=== PATIENT | male | born 1995 | race Caucasian/White ===

== ENCOUNTER 2020-09-08 14:11 | Outpatient (CLI) | payer OTHER, SELFPAY ==
--- NOTE | ~2020-09-08 | US_ITS ---
EXAMINATION: US scrotum doppler DATE: 09/08/2020 14:43 INDICATION: Right scrotal pain. TECHNIQUE: Grayscale and Doppler ultrasound images of the testes were obtained. COMPARISON: Ultrasound 03/20/2019 FINDINGS: The right testis measures 4.9 x 2.2 x 3.1 cm. The left testis measures 4.7 x 2.7 x 3.0 cm. There is normal vascular flow to both testes. The right epididymis is normal with normal vascular raymundo w. The left epididymis is normal with normal vascular flow. There is no varicocele or hydrocele. IMPRESSION: 1. Normal testes. Reviewed, dictated and finalized at location A. RING ASSISTANT IMPRESSION: 1. Normal testes.
== END 2020-09-08 14:12 | disposition home or self-care (01) ==
PROVIDERS: PCP Emergency Medicine; Visit Provider Emergency Medicine
DX: N50.811 Right testicular pain (principal)
CPT/HCPCS: 76870; 93976

== ENCOUNTER 2022-03-15 20:52 | Emergency (ER) | payer OTHER, SELFPAY ==
[2022-03-15 21:00] VITALS: BP 132/82; PULSE 80; RESP 18; TEMP 36.3; O2SAT 100
--- NOTE | 2022-03-15 21:12 | ED.SKABFB ---
HPI - Skin/Abscess/Foreign Bdy General Chief complaint: Skin/Abscess/Foreign Body Stated complaint: insect bite Time Seen by Provider: 03/15/22 21:12 History of Present Illness HPI narrative: Patient is a 27-year-old male presenting to the emergency department for evaluation of left upper extremity infection. Patient reports that he was bit by a mosquito bite 3 days ago, had noticed redness at the site of the bite troy. Patient states that he seemed to have some increasing areas of redness in the left forearm and soreness in his armpit area. Patient denies any draining from the lesion. Denies any fever, chills, nausea or vomiting. Patient was sent to an urgent care today and was prescribed Keflex and oral prednisone. He has been applying anti-itch cream and taking oral Benadryl. Patient denies history of diabetes, immunosuppression. No history of skin infection. Denies history of IV drug abuse. Patient states that he came to the emergency department because he heard that if the infection traveled to his heart it could kill him. Related Data Allergies Allergy/AdvReac Type Severity Reaction Status Date / Time No Known Allergies Allergy Unverified 05/21/19 07:54 Review of Systems Review of Systems: CONSTITUTIONAL: Denies fever CARDIOVASCULAR: Denies chest pain RESPIRATORY: Denies cough or dyspnea. GASTROINTESTINAL: Denies abdominal pain SKIN: Reports redness and bite troy to left forearm MUSCULOSKELETAL: Denies back pain NEUROLOGIC: Denies headache PMFSH Past Medical History Medical History (Updated 03/15/22 @ 21:18 by Flower Gongora MD) Cervical spine fracture Surgical History Surgical History (Updated 03/15/22 @ 21:15 by Flower Gongora MD) History of tonsillectomy Social History Social History (Updated 03/15/22 @ 21:15 by Flower Gongora MD) Smoking status: Former smoker Alcohol intake: current Substance use: never Gender identity (if verbalized by the patient): Male Exam Narrative: GENERAL: Awake, alert, conversant HEAD: Normocephalic, atraumatic. EYES: PERRLA and EOMI. ENT: Nares clear, no rhinorrhea or epistaxis. Mucous membranes moist. NECK: Supple. CHEST: No respiratory distress, breathing even and non labored HEART: Regular rate, sinus rhythm ABDOMEN:Non distended, non tender EXTREMITIES: Normal range of motion. No edema. Patient with envenomation troy in the left antecubital fossa there are no vesicles, no fluctuance, no significant induration. No targetoid lesion. There is a mild amount of erythema distal to the wound there is no evidence of tracking. Radial pulse 2+. Intact sensation median, ulnar, radial nerve distribution. No significant edema. SKIN: Warm, dry, no rash. NEURO:No focal deficits. Alert and oriented x3 Course Vital Signs Vital signs: Vital Signs Temperature 36.3 C L 03/15/22 21:00 Pulse Rate 80 03/15/22 21:00 Respiratory Rate 18 03/15/22 21:00 Blood Pressure 132/82 03/15/22 21:00 Pulse Oximetry 100 03/15/22 21:00 Oxygen Delivery Room Air 03/15/22 21:00 Temperature 36.3 C L 03/15/22 21:00 Pulse Rate 80 03/15/22 21:00 Respiratory Rate 18 03/15/22 21:00 Blood Pressure 132/82 03/15/22 21:00 Pulse Oximetry 100 03/15/22 21:00 Oxygen Delivery Room Air 03/15/22 21:00 MDM - Skin/Abscess/Foreign Bdy MDM Narrative Medical decision making narrative: Patient presenting for evaluation of left upper extremity lesion with known mosquito bite envenomation and concern for potential worsening infection. Patient was prescribed oral Keflex as well as a oral course of prednisone at the urgent, states that he had 1 dose of Keflex and has noticed an improvement in the area. Patient has been using topical anti-itch cream and Benadryl. Advised that he may continue this on the Keflex but I did not recommend continuing the prednisone. This seems most consistent with envenomation versus early cellulitis. There is no evidence of
== END 2022-03-15 21:42 | disposition home or self-care (01) ==
LOC: ANHED 21:29
PROVIDERS: Emergency Provider Emergency Medicine; PCP Emergency Medicine
DX: L03.114 Cellulitis of left upper limb (principal)
CPT/HCPCS: 99281

== ENCOUNTER 2022-07-10 20:45 | Emergency (ER) | payer OTHER, SELFPAY ==
--- NOTE | ~2022-07-10 | CT_ITS ---
EXAMINATION: CT abdomen pelvis w con DATE: 07/11/2022 00:17 INDICATION: Right lower quadrant pain. TECHNIQUE: Computed tomography (CT) of the abdomen and pelvis was performed with 100 cc Omnipaque 350 intravenous contrast. The dose-length product was 262.92 mGy-cm. Automated exposure control and iter ative reconstruction technique were employed. COMPARISON: CT dated 03/20/2019. FINDINGS: Lung bases are unremarkable. Heart size normal. No significant pleural or pericardial effus ion. The liver, spleen, pancreas, adrenal glands and kidneys are unremarkable. Gallbladder is present . No significant vascular abnormality. No lymphadenopathy. Colonic diverticulosis without evidence fo r diverticulitis. A normal appendix. No hydronephrosis. No evidence for hernia. No free air or free f luid. No acute bone or joint abnormality. IMPRESSION: 1. No acute abdominal abnormality. Reviewed, dictated and finalized at location B.
[2022-07-10 20:53] VITALS: BP 148/75; PULSE 90; RESP 16; TEMP 36.5; O2SAT 97
[2022-07-10 22:34] LABS: Basophils Percent Auto 0.3 % (0.2-1.2); Eosinophils Percent Auto 0.6 % (0-4.4); Hematocrit 45.6 % (42.0-52.0); Hemoglobin 16.3 g/dL (14.0-18.0); Immature Granulocyte Absolute 0.01 K/mm3 (0.00-0.031); Immature Granulocyte Percent A 0.1 % (0-0.5); Lymphocytes Percent Auto 36.9 % (18.3-44.2); Mean Corpuscular HGB Conc 35.7 g/dl (32-36); Mean Corpuscular Hemoglobin 30.5 pg (26-34); Mean Corpuscular Volume 85.4 fl (80-100); Mean Platelet Volume 10.5 fl (7.4-10.4); Monocytes Absolute Auto 0.4 K/mm3 (0.1-0.6); Monocytes Percent Auto 5.3 % (2.6-8.5); Neutrophils Absolute Auto 3.8 K/mm3 (1.3-6.7); Neutrophils Percent Auto 56.8 % (45.5-73.1); Platelet Count Result 156 k/mm3 (150-375); Red Blood Count 5.34 M/mm3 (4.6-6.20); Red Cell Distribution Width 11.6 % (11.5-14.5); White Blood Count 6.8 K/mm3 (4.5-10.0)
[2022-07-10 22:39] LABS: Add Urine Microscopic? YES; Appearance Urine Clear (Clear); Bilirubin Urine Negative (Negative); Blood Urine Negative (Negative); Color Urine Yellow (Yellow); Glucose Urine UA Negative (Negative); Ketones Urine 1+ mg/dL (Negative); Leukocyte Esterase Ur Negative LEU/UL (Negative); Mucus Urine Rare /lpf; Nitrate Urine Negative (Negative); Protein Urine Negative (Negative); Specific Grav Ur 1.029 (1.001-1.035); Urobilinogen Urine Negative mg/dL (<2.0); WBC Urine 0-3 /hpf
[2022-07-10 22:46] LABS: Alanine Aminotransferase 19 U/L (6-50); Albumin Level 5.1 g/dL (3.5-5.1); Alkaline Phosphatase 54 U/L (38-126); Anion Gap 17 mmol/L (8-16); Aspartate Amino Transferase 22 U/L (17-59); Bilirubin,Total 0.6 mg/dL (0.2-1.3); Blood Urea Nitrogen 16 mg/dL (9-20); Carbon Dioxide 27 mmol/L (22-30); Chloride 99 mmol/L (98-107); Estimated CRCL calculation 109 ml/min; Estimated Glomerular Filt Rate > 60; Glucose 87 mg/dL (65-110); Lipase 20 U/L (23-300); Potassium 3.6 mmol/L (3.4-5.0); Sodium 143 mmol/L (137-145)
--- NOTE | 2022-07-10 23:52 | ED.GENADULT ---
HPI - General Adult General Chief complaint: Abdominal Pain Stated complaint: abd and groin pain Time Seen by Provider: 07/10/22 22:43 History of Present Illness HPI narrative: Patient is a 27-year-old gentleman who presents the emergency department with chief complaint of right lower quadrant and right inguinal pain. The patient reports he is concerned that he may have a hernia reports that it was becoming more painful reports that when he is laying down it becomes worse and improved actually when he stands up. The patient reports that he noticed a small bump in the area but it does reduce. The patient states that he has worsening pain in the right lower quadrant reports it is worse with movement and improved with rest. Patient denies fever denies vomiting denies diarrhea. Patient denies penile discharge denies testicle pain. Related Data Allergies Allergy/AdvReac Type Severity Reaction Status Date / Time No Known Allergies Allergy Verified 07/10/22 20:52 Review of Systems Review of Systems: A 10 system review of systems was completed on the patient and is negative except for what is stated in the HPI. Nursing and ancillary documentation was reviewed. [facility] Past Medical History Medical History Cervical spine fracture Surgical History Surgical History History of tonsillectomy Social History Social History Smoking status: Former smoker Alcohol intake: current Substance use: never Gender identity (if verbalized by the patient): Male Exam Narrative: GENERAL: Well-appearing, well-nourished, and in no acute distress. HEAD: Normocephalic, atraumatic. EYES: PERRLA and EOMI. ENT: Nares clear, no rhinorrhea or epistaxis. Mucous membranes moist. NECK: Supple. CHEST: Clear to auscultation. No respiratory distress. HEART: Regular rate and rhythm. No murmur heard. Normal peripheral pulses. ABDOMEN: Soft, tender to palpation of the right lower quadrant , nondistended, normal active bowel sounds. : No testicular tenderness. No mass present EXTREMITIES: Normal range of motion. No edema. SKIN: Warm, dry, no rash. NEURO: No focal deficits. Alert and oriented x3. PSYCH: Normal mood and affect. Course Course Emergency Course: CT scan of the abdomen pelvis showed no evidence of acute abnormalities. Laboratory studies showed no acute abnormalities Vital Signs Vital signs: Vital Signs Temperature 36.5 C 07/10/22 20:53 Pulse Rate 90 07/10/22 20:53 Respiratory Rate 16 07/10/22 20:53 Blood Pressure 148/75 H 07/10/22 20:53 Pulse Oximetry 97 07/10/22 20:53 Oxygen Delivery Room Air 07/10/22 20:53 Temperature 36.5 C 07/10/22 20:53 Pulse Rate 90 07/10/22 20:53 Respiratory Rate 16 07/10/22 20:53 Blood Pressure 148/75 H 07/10/22 20:53 Pulse Oximetry 97 07/10/22 20:53 Oxygen Delivery Room Air 07/10/22 20:53 Medical Decision Making Vital Signs Vital Signs: Vital Signs Temperature 36.5 C 07/10/22 20:53 Pulse Rate 90 07/10/22 20:53 Respiratory Rate 16 07/10/22 20:53 Blood Pressure 148/75 H 07/10/22 20:53 Pulse Oximetry 97 07/10/22 20:53 Oxygen Delivery Room Air 07/10/22 20:53 Temperature 36.5 C 07/10/22 20:53 Pulse Rate 90 07/10/22 20:53 Respiratory Rate 16 07/10/22 20:53 Blood Pressure 148/75 H 07/10/22 20:53 Pulse Oximetry 97 07/10/22 20:53 Oxygen Delivery Room Air 07/10/22 20:53 Lab Data Result diagrams: 07/10/22 22:25 07/10/22 22:25 Labs: Lab Results 07/10/22 07/10/22 07/10/22 Range/Units 22:25 22:25 22:25 WBC 6.8 (4.5-10.0) K/mm3 RBC 5.34 (4.6-6.20) M/mm3 Hgb 16.3 (14.0-18.0) g/dL Hct 45.6 (42.0-52.0) % MCV 85.4 (80-100) fl MCH 30.5 (26-34) pg MCHC 35.7 (3
[2022-07-11 01:36] VITALS: PULSE 76; RESP 18; O2SAT 98
== END 2022-07-11 01:52 | disposition home or self-care (01) ==
PROVIDERS: Physician Assistant; Emergency Provider Emergency Medicine
DX: R10.31 Right lower quadrant pain (principal); Z87.891 Personal history of nicotine dependence
CPT/HCPCS: 36415; 74177; 80053; 81001; 83690; 85025; 99284; Q9967